=== PATIENT | female | born 1980 | race Caucasian/White ===

== ENCOUNTER 2019-05-27 20:24 | Emergency (ER) | payer OTHER ==
[~2019-05-27] VITALS: Ht 152.4 cm; Wt 52.2 kg
[2019-05-27] MEDS ORDERED: ZPAK PO (20:32)
[2019-05-27] MEDS ORDERED: NORCO 5-325 TA1 EAC1 PO (22:49)
[2019-05-27] MEDS ORDERED: IBUPROFEN 600600 M1 PO (22:49)
[2019-05-27] MEDS ORDERED: KEFLEX500 M1 PO (22:49)
[2019-05-27 23:36] VITALS: BP 110/74
== END 2019-05-27 23:36 | disposition home or self-care (01) ==
LOC: M.ERS 20:24
DX: S62.616A Displaced fracture of proximal phalanx of right little finger, initial encounter for closed fracture (principal); S62.634A Displaced fracture of distal phalanx of right ring finger, initial encounter for closed fracture; S61.236A Puncture wound without foreign body of right little finger without damage to nail, initial encounter; Z90.49 Acquired absence of other specified parts of digestive tract; W20.8XXA Other cause of strike by thrown, projected or falling object, initial encounter; Y93.89 Activity, other specified; Y92.89 Other specified places as the place of occurrence of the external cause; Y99.8 Other external cause status